=== PATIENT | female | born 1990 | race Caucasian/White ===

== ENCOUNTER 2017-11-05 17:50 | Emergency (ER) | payer OTHER ==
[2017-11-05 18:25] VITALS: BP 121/74
--- NOTE | 2017-11-05 21:29 | UC ---
- HPI Summary HPI Summary: 1 week ago patient ate [employer]. 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 She has tried to see her PCP but both times the PCP got called to the hospital for deliveries---the vomiting and diarrhea have resolved now---usual movement - History of Current Complaint Chief Complaint: UCGeneralIllness Stated Complaint: EMISIS, ACHEY,DIZZINESS Time Seen by Provider: 11/05/17 18:28 Hx Obtained From: Patient Chief Complaint: Other: - concerned for infectios disease exposure Onset/Duration: Still Present - resolved Timing: Constant Current Severity: None Pain Intensity: 0 Location of Pain: None Character: None Associated Signs and Symptoms: Positive: Other: - symptoms have resolved - Assessment Hx Now: Yes - 23 WEEKS Heart Rate via Doppler: 128 - Allergies/Home Medications Allergies/Adverse Reactions: Allergies Allergy/AdvReac Type Severity Reaction Status Date / Time amoxicillin Allergy Rash Verified 11/05/17 18:26 Penicillins Allergy Rash Verified 11/05/17 18:26 PMH/Surg Hx/FS Hx/Imm Hx Previously Healthy: Yes - Surgical History Surgical History: None - Family History Known Family History: Positive: Hypertension - Social History Occupation: Employed Full-time Lives: With Family Alcohol Use: None Substance Use Type: None Smoking Status (MU): Never Smoked Tobacco Review of Systems Constitutional: Negative Skin: Negative Eyes: Negative ENT: Negative Respiratory: Negative Cardiovascular: Negative Gastrointestinal: Vomiting - that has now resolved, Diarrhea - that has now resolved Genitourinary: Negative Motor: Negative Neurovascular: Negative Musculoskeletal: Negative Neurological: Negative Psychological: Negative Is Patient Immunocompromised?: No All Other Systems Reviewed And Are Negative: Yes Physical Exam - Physical Exam Triage Information Reviewed: Yes Vital Signs Reviewed: Yes Appearance: Positive: Well-Appearing, No Pain Distress, Well-Nourished Skin: Positive: Warm, Skin Color Reflects Adequate Perfusion Head/Face: Positive: Normal Head/Face Inspection Eyes: Positive: Normal, Conjunctiva Clear ENT: Positive: Hearing grossly normal Neck: Positive: Supple, Nontender Respiratory/Lung Sounds: Negative: Unable to speak in full sentences Cardiovascular: Positive: Normal, Pulses are Symmetrical in both Upper and Lower Extremities Abdomen Description: Positive: Nontender, No Organomegaly, Soft. Negative: CVA Tenderness (R), CVA Tenderness (L) Musculoskeletal: Positive: Normal, Strength/ROM Intact, Limited @ Neurological: Positive: Normal, Sensory/Motor Intact, Alert, Oriented to Person Place, Time Psychiatric: Positive: Normal, Affect/Mood Appropriate AVPU Assessment: Alert - [place] Coma Scale Eye: 4 - Spontaneous Motor: 6 - Obeys Commands Verbal: 5 - Oriented Coma Scale Total: 15 Re-Evaluation - Re-Evaluation First Eval Change: Unchanged - reviewed CDC Guidelines for potential Listeria Exposure in women----also [employer] to learn the report she read on social media was from 2017 and was reposted on social media as "NEW NEWS".. Patient will follow with Dr. Tang in morning. Course/Dx - Course Assessment/Plan: increase fluids, follow with Dr Tang in the morning--- reassurance information and education provided - Diagnoses Provider Diagnoses: Diarrhea during , Diarrhea of presumed infectious origin, Nausea/ vomiting in Discharge - Sign-Out/Discharge Documenting (check all that apply): Discharge/Admit/Transfer - Discharge Plan Condition: Stable Disposition: HOME Patient Education Materials: Acute Nausea and Vomiting (ED) Referrals: Aure Mathews MD [Primary Care Provider] - 1 Day Additional Instructions: ,---this is the number to "Susan Villalta" :) - Billing Disposition and Condition Condition: STABLE Disposition: Home
== END 2017-11-05 19:18 | disposition home or self-care (01) ==
LOC: UCCORT 17:50
DX: O26.892 Other specified pregnancy related conditions, second trimester (principal); Z3A.23 23 weeks gestation of pregnancy; R19.7 Diarrhea, unspecified; Z88.0 Allergy status to penicillin
CPT/HCPCS: 81003; 99211; G0463